=== PATIENT | male | born 1980 | race Caucasian/White ===

== ENCOUNTER → 2018-08-12 | Outpatient (CLI) | payer BC ==
--- NOTE | 2018-08-12 09:13 | CT ---
EXAMINATION TYPE: CT abdomen pelvis w con DATE OF EXAM: 08/12/2018 COMPARISON: NONE HISTORY: 37-year-old male left groin pain TECHNIQUE: Contiguous axial scanning of the abdomen and pelvis following administration of 100 ml Iso jarvis 300 IV contrast. Delayed images through the kidneys and coronal/sagittal reconstructions perform ed. CT DLP: 1658.70 mGycm Automated exposure control for dose reduction was used. FINDINGS: Heart normal size without pericardial effusion. Mild dependent atelectasis posterior lungs. No pleura l effusion. Liver borderline enlarged at 17.9 cm. Portal venous system is patent. No biliary ductal dilatation. Adrenal glands and pancreas are within normal limits. Spleen shows a couple anterior splenules. Lesio n also measures at the upper limits of normal in size at 13.6 cm measured on axial series. Bilateral renal calculi are present, one under right measuring up to 5 mm and 6 on the left measuring up to 5 mm. Tiny subcentimeter hypodensity posterior upper mid pole right kidney too small for accurate CT charac terization, probable cyst. There is symmetric uptake and excretion of contrast from both kidneys without hydronephrosis. Tiny fatty umbilical hernia. No dilated small bowel, free fluid, or free air. No mesenteric or retroperitoneal lymphadenopathy. Normal appendix. Oral contrast has progressed to the rectum. No significant stool burden or pericolon ic inflammatory change. Mild circumferential bladder wall thickening. Patulous right internal canal. Prostate gland measures 4.5 cm wide, mildly enlarged. No abnormal fluid collection in the pelvis or pelvic lymphadenopathy. Bones: Mild degenerative spurring at the hips. Mild degenerative disc disease L5-S1. Additional mild degenerative disc disease visualized lower thoracic spine. IMPRESSION: 1 SOME MILD DEGENERATIVE SPURRING AT BOTH HIPS. 2. BORDERLINE LIVER SIZE (17.9 CM). BORDERLINE SPLENOMEGALY (13.6 CM). 3. BILATERAL NONOBSTRUCTIVE NEPHROLITHIASIS MEASURING UP TO 5 MM, LEFT GREATER THAN RIGHT. 4. MILD CIRCUMFERENTIAL BLADDER WALL THICKENING COULD REPRESENT CHRONIC BLADDER WALL HYPERTROPHY OR C YSTITIS. 5. VERY MILD PROSTATIC ENLARGEMENT 4.5 CM WIDE.
== END | disposition home or self-care (01) ==
LOC: RADCTMAIN 07:02
PROVIDERS: ATTEND Surgery
DX: M76.891 Other specified enthesopathies of right lower limb, excluding foot (principal); M76.892 Other specified enthesopathies of left lower limb, excluding foot; N20.0 Calculus of kidney; R16.1 Splenomegaly, not elsewhere classified; N40.0 Benign prostatic hyperplasia without lower urinary tract symptoms; N32.89 Other specified disorders of bladder; S76.219A Strain of adductor muscle, fascia and tendon of unspecified thigh, initial encounter
CPT/HCPCS: 74177; Q9967

== ENCOUNTER → 2019-03-03 | Outpatient (CLI) | payer SELFPAY ==
--- NOTE | 2019-03-03 10:19 | CT ---
EXAMINATION TYPE: CT heart w calcium score DATE OF EXAM: 03/03/2019 COMPARISON: None HISTORY: Screening for cardiovascular disorder. 213.9 CT DLP: 83.1 mGycm Automated exposure control for dose reduction was used. CT CALCIUM SCORING Coronary calcium is a marker for plaque (fatty deposits) in a blood vessel or atherosclerosis (harden ing of the arteries). The presence and amount of calcium detected in a coronary artery by the CT sca n, indicates the presence and amount of atherosclerotic plaque. These calcium deposits appear years before the development of heart disease symptoms such as chest pain and shortness of breath. A calcium score is computed for each of the coronary arteries based upon the volume and density of th e calcium deposits. This can be referred to as your calcified plaque burden. It does not correspond directly to the percentage of narrowing in the artery but does correlate with the severity of the un derlying coronary atherosclerosis. PROCEDURE TECHNIQUE - Prospective Gating was used. Slice thickness: 3mm. Density threshold (HU): 130, Pixel threshold: 3, Algorithm: discrete. RESULTS Total: Calcium Score ([place]): 0 Volume (mm3): 0 Mass (g): 0 TOTAL CALCIUM SCORE: 0 The ascending thoracic aorta at the level of main pulmonary artery is 3.0 cm. The main pulmonary karen ry the bifurcation is 2.7 cm. Portion of the lung windows within the [id number] are clear. IMPRESSION: Calcium Score: 0 Implication: Very low risk of significant coronary artery stenosis. Risk of Coronary Artery Disease: Generally less than 5%. CALCIUM SCORE IMPLICATION RISK OF C ORONARY ARTERY DISEASE 0 No identifiable plaque Very low, generally less than 5% 1-10 Minimal identifiable plaque Very unlikely, less than 10% 11-100 Definite, at least mild atherosclerotic plaque Mild or m inimal coronary narrowings likely 101-400 Definite, at least moderate atherosclerotic plaque Mild coronary ar fito disease highly likely, significant narrowing possible 401 or Higher Extensive atherosclerotic plaque High lik elihood of at least one significant coronary narrowing
== END | disposition home or self-care (01) ==
LOC: RADCTMAIN 08:11
PROVIDERS: ATTEND Family Medicine
DX: I25.84 Coronary atherosclerosis due to calcified coronary lesion (principal)
CPT/HCPCS: 75571

== ENCOUNTER 2019-07-23 13:45 | Emergency (ER) | payer BC ==
[2019-07-23 14:29] VITALS: RESP 18
[2019-07-23] MEDS ORDERED: ONDANSETRON 4 MG/2 ML VIAL IVP STA (15:41)
[2019-07-23] MEDS ORDERED: SODIUM CHLORIDE 0.9% 1,000 ML IV STA ×2 (15:41)
[2019-07-23] MEDS ORDERED: KETOROLAC 30 MG/ML 1 ML VIAL IVP STA (15:41)
[2019-07-23] MEDS ORDERED: MORPHINE SULFATE 4 MG/ML SYRINGE IV STA (15:41)
--- NOTE | 2019-07-23 15:48 | ED ---
Abdominal Pain HPI - General Chief Complaint: Abdominal Pain Stated Complaint: abdominal pain Time Seen by Provider: 07/23/19 15:18 Source: patient, RN notes reviewed, old records reviewed Mode of arrival: ambulatory Limitations: no limitations - History of Present Illness Initial Comments: Mario Alberto is a 38-year-old male with she will of left lower quadrant abdominal pain. Patient reports that he was seen by medics breath, or concern for diverticulitis. He has not started the antibiotics at this time. Reports the pain radiates from his left lower quadrant towards his back. He denies any associated fevers or chills. He does report some darker urine but has been vomiting. He states he thinks his parents related to dehydration. Does report he has a history of kidney stones that were noted on previous CAT scan but is never passed a kidney stone. Patient states that he's had no past surgical history. - Related Data Previous Rx's Medication Instructions Recorded Albuterol Sulfate [Ventolin HFA] 2 puff INHALATION Q4H PRN #1 05/20/14 inhaler HYDROcodone/APAP 5-325MG [[place] 1 tab PO Q6HR PRN 3 Days #12 tab 07/23/19 5-325] Ketorolac [Toradol] 10 mg PO Q6HR #10 tab 07/23/19 Ondansetron Odt [Zofran Odt] 4 mg PO Q8HR PRN #12 tab 07/23/19 Tamsulosin [Flomax] 0.4 mg PO DAILY #10 cap 07/23/19 Allergies Allergy/AdvReac Type Severity Reaction Status Date / Time No Known Allergies Allergy Verified 07/23/19 14:24 Review of Systems ROS Statement: Those systems with pertinent positive or pertinent negative responses have been documented in the HPI. ROS Other: All systems not noted in ROS Statement are negative. Past Medical History Past Medical History: Asthma History of Any Multi-Drug Resistant Organisms: None Reported Additional Past Surgical History / Comment(s): right shoulder, Past Psychological History: No Psychological Hx Reported Smoking Status: Never smoker Past Alcohol Use History: Occasional Past Drug Use History: None Reported General Exam - General Exam Comments Initial Comments: Alert and oriented 38-year-old male. No distress. General: Well appearing, well nourished, in no distress. Oriented x 3, normal mood and affect . Ambulating without difficulty. Skin: Good turgor, no rash, unusual bruising or prominent lesions Hair: Normal texture and distribution. HEENT: Head: Normocephalic, atraumatic, no visible or palpable masses, depressions, or scaring. Eyes: Visual acuity intact, conjunctiva clear, sclera non-icteric, EOM intact, PERRL. Ears: EACs clear, TMs translucent & cone of light visualized. hearing intact. Nose: No external lesions, mucosa non-inflamed, septum and turbinates normal Mouth: Mucous membranes moist, no mucosal lesions. Teeth/Gums: No obvious caries or periodontal disease. No gingival inflammation or significant resorption. Pharynx: Mucosa non-inflamed, no tonsillar hypertrophy or exudate Neck: Supple, without lesions, bruits, or adenopathy, thyroid non-enlarged and non-tender Heart: No cardiomegaly or thrills; regular rate and rhythm, no murmur or gallop Lungs: Clear to auscultation and percussion Abdomen: Bowel sounds normal, no tenderness, organomegaly, masses, or hernia Back: Spine normal without deformity or tenderness, left lower quadrant pain. Left CVA tenderness. Extremities: No amputations or deformities, cyanosis, edema or varicosities, peripheral pulses intact Musculoskeletal: Normal gait and station. No misalignment, asymmetry, crepitation, defects, tenderness, masses, effusions, decreased range of motion, instability, atrophy or abnormal strength or tone in the head, neck, spine, ribs, pelvis or extremities. Neurologic: CN 2-12 normal. Sensation to pain, touch, and proprioception normal. DTRs normal in upper and lower extremities. No pathologic reflexes. Psychiatric: Oriented X3, intact recent and remote memory, judgment and insight, normal mood and affect. Limitations: no limitations Course Vital Signs 07/23/19 14:25 Temperature 97.3 F L Pulse Rate 81 Respiratory 18 Rate Blood Pressure 154/102 O2 Sat by Pulse 95 Oximetry Medical Decision Making - Medical Decision Making 38-year-old male presents emergency department today for evaluation for left- sided abdominal pain. Symptoms for the past 2 days. He does report seems to be worse with eating. He states it's in the left lower quadrant radiates towards his back. Patient had low blood blood work reviewed. Mild leukocytosis. Most likely reactive to vomiting. Patient's urinalysis is positive for blood. No signs of bacterial infection at this time. Urine culture will be obtained however. Patient's CAT scan shows evidence of a 4 mm mid left ureteral stone with some hydronephrosis. Patient was informed of these results. Discharged with Zofran pain meds Toradol. I discussed the Patient follow-up with urology. Discussed return parameters. - Lab Data Result diagrams: 07/23/19 15:37 07/23/19 15:37 Lab Results 07/23/19 07/23/19 07/23/19 Range/Units 15:37 15:37 15:37 WBC 12.0 H (3.8-10.6) k/uL RBC 5.52 (4.30-5.90) m/uL Hgb 16.2 (13.0-17.5) gm/dL Hct 47.2 (39.0-53.0) % MCV 85.5 (80.0-100.0) fL MCH 29.3 (25.0-35.0) pg MCHC 34.3 (31.0-37.0) g/dL RDW 12.7 (11.5-15.5) % Plt Count 253 (150-450) k/uL Neutrophils % 83 % Lymphocytes % 10 % Monocytes % 5 % Eosinophils % 1 % Basophils % 0 % Neutrophils # 9.9 H (1.3-7.7) k/uL Lymphocytes # 1.2 (1.0-4.8) k/uL Monocytes # 0.6 (0-1.0) k/uL Eosinophils # 0.1 (0-0.7) k/uL Basophils # 0.0 (0-0.2) k/uL PT 10.4 (9.0-12.0) sec INR 1.0 (<1.2) APTT 28.4 (22.0-30.0) sec Sodium 142 (137-145) mmol/L Potassium 4.0 (3.5-5.1) mmol/L Chloride 105 (98-107) mmol/L Carbon Dioxide 25 (22-30) mmol/L Anion Gap 12 mmol/L BUN 15 (9-20) mg/dL Creatinine 1.20 (0.66-1.25) mg/dL Est GFR (CKD-EPI)AfAm 88 (>60 ml/min/1.73 sqM) Est GFR (CKD-EPI)NonAf 76 (>60 ml/min/1.73 sqM) Glucose 98 (74-99) mg/dL Calcium 9.5 (8.4-10.2) mg/dL Total Bilirubin 0.9 (0.2-1.3) mg/dL AST 23 (17-59) U/L ALT 36 (21-72) U/L Alkaline Phosphatase 56 (38-126) U/L Total Protein 8.1 (6.3-8.2) g/dL Albumin 5.1 H (3.5-5.0) g/dL Amylase 44 (30-110) U/L Lipase 81 (23-300) U/L Urine Color Urine Appearance (Clear) Urine pH (5.0-8.0) Ur Specific [place] (1.001-1.035) Urine Protein (Negative) Urine Glucose (UA) (Negative) Urine Ketones (Negative) Urine Blood (Negative) Urine Nitrite (Negative) Urine Bilirubin (Negative) Urine Urobilinogen (<2.0) mg/dL Ur Leukocyte Esterase (Negative) Urine RBC (0-5) /hpf Urine WBC (0-5) /hpf Urine Mucus (None) /hpf 07/23/19 Range/Units 16:01 WBC (3.8-10.6) k/uL RBC (4.30-5.90) m/uL Hgb (13.0-17.5) gm/dL Hct (39.0-53.0) % MCV (80.0-100.0) fL MCH (25.0-35.0) pg MCHC (31.0-37.0) g/dL RDW (11.5-15.5) % Plt Count (150-450) k/uL Neutrophils % % Lymphocytes % % Monocytes % % Eosinophils % % Basophils % % Neutrophils # (1.3-7.7) k/uL Lymphocytes # (1.0-4.8) k/uL Monocytes # (0-1.0) k/uL Eosinophils # (0-0.7) k/uL Basophils # (0-0.2) k/uL PT (9.0-12.0) sec INR (<1.2) APTT (22.0-30.0) sec Sodium (137-145) mmol/L Potassium (3.5-5.1) mmol/L Chloride (98-107) mmol/L Carbon Dioxide (22-30) mmol/L Anion Gap mmol/L BUN (9-20) mg/dL Creatinine (0.66-1.25) mg/dL Est GFR (CKD-EPI)AfAm (>60 ml/min/1.73 sqM) Est GFR (CKD-EPI)NonAf (>60 ml/min/1.73 sqM) Glucose (74-99) mg/dL Calcium (8.4-10.2) mg/dL Total Bilirubin (0.2-1.3) mg/dL AST (17-59) U/L ALT (21-72) U/L Alkaline Phosphatase (38-126) U/L Total Protein (6.3-8.2) g/dL Albumin (3.5-5.0) g/dL Amylase (30-110) U/L Lipase (23-300) U/L Urine Color Yellow Urine Appearance Clear (Clear) Urine pH 7.0 (5.0-8.0) Ur Specific [place] 1.022 (1.001-1.035) Urine Protein 1+ H (Negative) Urine Glucose (UA) Negative (Negative) Urine Ketones Negative (Negative) Urine Blood Moderate H (Negative) Urine Nitrite Negative (Negative) Urine Bilirubin Negative (Negative) Urine Urobilinogen <2.0 (<2.0) mg/dL Ur Leukocyte Esterase Trace H (Negative) Urine RBC >182 H (0-5) /hpf Urine WBC 4 (0-5) /hpf Urine Mucus Rare H (None) /hpf - Radiology Data Radiology results: report reviewed Calculus within the third left ureter measures 4 mm and results in mid left hydronephrosis and perinephric inflammation. Bilateral nonobstructing renal colliculi. KUB shows Nonspecific abdomen. Disposition Clinical Impression: Left ureteral stone Disposition: HOME SELF-CARE Condition: Good Instructions (If sedation given, give patient instructions): Ureteral Stones (ED) Additional Instructions: Patient advised to drink plenty of fluids. Take nausea medicine and pain medicine as needed. Patient should have close follow-up with urology. Return to the emergency department if any alarming signs or symptoms occur. Prescriptions: Tamsulosin [Flomax] 0.4 mg PO DAILY #10 cap HYDROcodone/APAP 5-325MG [[place] 5-325] 1 tab PO Q6HR PRN 3 Days #12 tab PRN Reason: Pain Ketorolac [Toradol] 10 mg PO Q6HR #10 tab Ondansetron Odt [Zofran Odt] 4 mg PO Q8HR PRN #12 tab PRN Reason: Nausea Is patient prescribed a controlled substance at d/c from ED?: Yes If prescribed controlled substance>3 days was MAPS reviewed?: Prescribed <3 Days If opioid is for acute pain is fill amount 7 days or less?: Yes If Rx opioid, was Start Talking consent form obtained?: Yes Referrals: Eduar Del Castillo MD [Primary Care Provider] - 1-2 days Hector Adair MD [STAFF PHYSICIAN] - 1-2 days Time of Disposition: 17:40
[2019-07-23 15:53] LABS: Basophils % (A) 0 %; Eosinophils # (A) 0.1 k/uL (0-0.7); Eosinophils % (A) 1 %; HCT 47.2 % (39.0-53.0); HGB 16.2 gm/dL (13.0-17.5); Lymphocytes # (A) 1.2 k/uL (1.0-4.8); Lymphocytes % (A) 10 %; MCH 29.3 pg (25.0-35.0); MCHC 34.3 g/dL (31.0-37.0); MCV 85.5 fL (80.0-100.0); Mean Platelet Volume 8.2; Monocytes # (A) 0.6 k/uL (0-1.0); Monocytes % (A) 5 %; Neutrophils # (A) 9.9 k/uL (1.3-7.7); Neutrophils % (A) 83 %; Platelet Count 253 k/uL (150-450); RBC 5.52 m/uL (4.30-5.90); RDW 12.7 % (11.5-15.5)
[2019-07-23 16:02] LABS: Partial Thromboplastin Time 28.4 sec (22.0-30.0); Prothrombin Time 10.4 sec (9.0-12.0)
[2019-07-23 16:03] LABS: Albumin 5.1 g/dL (3.5-5.0); Calcium 9.5 mg/dL (8.4-10.2); Total Bilirubin 0.9 mg/dL (0.2-1.3); Total Protein 8.1 g/dL (6.3-8.2)
[2019-07-23 16:09] LABS: Appearance,Urine Clear (Clear); Bilirubin,Urine Negative (Negative); Blood,Urine Moderate (Negative); Color,Urine Yellow; Glucose,Urine (UA) Negative (Negative); Ketones,Urine Negative (Negative); Leukocyte Esterase,Urine Trace (Negative); Mucus,Urine Rare /hpf; Nitrite,Urine Negative (Negative); Protein,Urine 1+ (Negative); RBC,Urine >182 /hpf (0-5); Specific Gravity,Urine 1.022 (1.001-1.035); Urobilinogen,Urine <2.0 mg/dL (<2.0); WBC,Urine 4 /hpf (0-5)
--- NOTE | 2019-07-23 17:10 | XR ---
EXAMINATION TYPE: XR KUB DATE OF EXAM: 07/23/2019 COMPARISON: 08/12/2018 HISTORY: Pain TECHNIQUE: One view abdominal series FINDINGS: The osseous structures are intact. The bowel gas pattern is nonspecific. Lung bases are clear. No s uspicious calcifications. IMPRESSION: 1. Nonspecific abdomen.
--- NOTE | 2019-07-23 17:26 | CT ---
EXAMINATION TYPE: CT abdomen pelvis wo con DATE OF EXAM: 07/23/2019 COMPARISON: None HISTORY: Left side flank pain and hematuria. CT DLP: 1147.4 mGycm Automated exposure control for dose reduction was used. TECHNIQUE: Helical acquisition of images was performed from the lung bases through the pelvis. FINDINGS: The study is limited lack of intravenous contrast. Lung bases are clear. Heart is not enlarged. The liver, spleen, pancreas, and adrenal glands have an unremarkable noncontrasted appearance. Circum scribed left upper quadrant nodular lesions likely splenules. No calcified gallstones. There are bilateral nonobstructing renal calculi. Calculus within the mid third left ureter measures 4 mm with resultant mild left hydronephrosis as well as asymmetric perinephric fat stranding (relativ e to the right kidney). No obstructing ureteral calculi on the right or right hydronephrosis. Urinary bladder is within normal limits. No dilated bowel, free air, or free fluid. Morphologically normal appendix. The inguinal canals are p atulous and fat filled bilaterally. Normal course and caliber of the aorta. No mesenteric adenopathy. No osseous destructive lesion. IMPRESSION: 1. Calculus within the mid third of the left ureter measures 4 mm and results in mild left hydronephr osis and perinephric inflammation. 2. Bilateral nonobstructing renal calculi.
[2019-07-23] MEDS ORDERED: TAMSULOSIN 0.4 MG CAP.ER.24H PO STA (17:47)
[2019-07-23 18:06] VITALS: BP 139/92; PULSE 79; TEMP 97.4
== END 2019-07-23 18:06 | disposition home or self-care (01) ==
LOC: EC 13:45
DX: N13.2 Hydronephrosis with renal and ureteral calculous obstruction (principal); D72.829 Elevated white blood cell count, unspecified
CPT/HCPCS: 36415; 80053; 82150; 83690; 85025; 85610; 85730; 81001; 74018; 74176; 99285; 96374; 96375 ×2; 96361 ×2; J2270; J2405; J1885

== ENCOUNTER → 2019-09-12 | Outpatient (CLI) | payer BC ==
--- NOTE | 2019-09-12 15:25 | US ---
EXAMINATION TYPE: US kidneys/renal and bladder DATE OF EXAM: 09/12/2019 COMPARISON: CT 07/23/2019 CLINICAL HISTORY: R93.4 Hx of Hydronephrosis. Hx renal stones EXAM MEASUREMENTS: Right Kidney: 12.0 x 5.9 x 5.6 cm Left Kidney: 12.7 x 6.2 x 5.7 cm Right Kidney: No hydronephrosis or masses seen. Non-obstructing echogenic focus visualized measuring 0.5 cm Left Kidney: No hydronephrosis or masses seen Bladder: wnl Bilateral Jets seen: No, jets not visualized There is no evidence for hydronephrosis at this point in time. No masses are identified. The urinar y bladder is anechoic. IMPRESSION: Solitary nonobstructing right renal calculus measuring 0.5 cm. No hydronephrosis of eithe r kidney.
== END | disposition home or self-care (01) ==
LOC: RADUSMAIN 14:46
PROVIDERS: ATTEND Urology
DX: N20.0 Calculus of kidney (principal); Z87.448 Personal history of other diseases of urinary system
CPT/HCPCS: 76770